=== PATIENT | female | born 1985 | race Two or more races ===

== ENCOUNTER → 2018-12-29 | Outpatient (CLI) | payer BC, MEDICAID ==
[2018-12-29 16:21] LABS: Basophils # (auto) 0 uL; Eosinophils # (auto) 0.1 uL; Neutrophils % (auto) 72.5 % (37.0-80.0)
[2018-12-29 16:24] LABS: Basophils % (auto) 0.4 % (0.0-2.0); Eosinophils % (auto) 0.9 % (0.0-7.0); Hematocrit 38.9 % (36.0-46.0); Lymphocytes # (auto) 1.2 uL; Lymphocytes % (auto) 17.1 % (10.0-50.0); Mean Corpuscular Hemoglobin 25.8 pg (28.0-32.0); Mean Corpuscular Hgb Conc. 33.4 g/dL (32.0-36.0); Monocytes # (auto) 0.6 uL; Monocytes % (auto) 9.1 % (0.0-12.0); Nucleated Red Blood Cells % 0.1 %; Platelet Count (auto) 202 10^3/uL (140-450); Red Blood Cells 5.05 10^6/uL (4.0-5.20); Red Cell Distribution Width 15.4 % (11.8-14.3); White Blood Cell 6.9 10^3/uL (4.4-10.8)
[2018-12-29 16:41] LABS: Alcohol, Urine < 3.0 mg/dL (0-5); Amphetamine Screen, Urine NEGATIVE (NEGATIVE); Barbiturate Scree,Urine NEGATIVE (NEGATIVE); Benzodiazephine Screen, Urine NEGATIVE (NEGATIVE); Cannabinoid Screen, Urine NEGATIVE (NEGATIVE); Cocaine Screen, Urine NEGATIVE (NEGATIVE); Opiate Scree,Urine NEGATIVE (NEGATIVE); Phencyclidine Screen, Urine NEGATIVE (NEGATIVE)
[2018-12-30 05:07] LABS: RPR Non Reactive (Non Reactive)
== END | disposition home or self-care (01) ==
LOC: LAB 15:41
PROVIDERS: ATTEND Specialist
DX: Z34.01 Encounter for supervision of normal first pregnancy, first trimester (principal); Z3A.13 13 weeks gestation of pregnancy; Z20.2 Contact with and (suspected) exposure to infections with a predominantly sexual mode of transmission
CPT/HCPCS: 36415; 80307; 83036; 84112; 84702; 85025; 86592; 86703; 86762; 86850; 86900; 86901; 87086; 87340

== ENCOUNTER → 2019-04-09 | Outpatient (CLI) | payer BC ==
[2019-04-09 09:40] LABS: Basophils # (auto) 0 uL; Basophils % (auto) 0.3 % (0.0-2.0); Eosinophils # (auto) 0 uL; Eosinophils % (auto) 0.5 % (0.0-7.0); Hematocrit 35.3 % (36.0-46.0); Hemoglobin 11.8 g/dL (12.2-16.2); Lymphocytes # (auto) 1.4 uL; Mean Corpuscular Hemoglobin 26.3 pg (28.0-32.0); Mean Corpuscular Hgb Conc. 33.4 g/dL (32.0-36.0); Mean Corpuscular Volume 78.7 fL (80.0-100.0); Monocytes # (auto) 0.5 uL; Monocytes % (auto) 6.6 % (0.0-12.0); Neutrophils # (auto) 6.2 uL; Neutrophils % (auto) 75.6 % (37.0-80.0); Platelet Count (auto) 180 10^3/uL (140-450); Red Blood Cells 4.48 10^6/uL (4.0-5.20); Red Cell Distribution Width 14.9 % (11.8-14.3); White Blood Cell 8.2 10^3/uL (4.4-10.8)
== END | disposition home or self-care (01) ==
LOC: LAB 08:31
PROVIDERS: ATTEND Specialist
DX: O99.810 Abnormal glucose complicating pregnancy (principal); Z3A.28 28 weeks gestation of pregnancy
CPT/HCPCS: 36415; 82951; 85025

== ENCOUNTER → 2019-06-08 | Outpatient (CLI) | payer BC ==
[2019-06-08 11:28] LABS: Basophils # (auto) 0 10 ^3/uL (0-0.2); Basophils % (auto) 0.3 % (0.0-2.0); Eosinophils # (auto) 0 10 ^3/uL (0-0.8); Eosinophils % (auto) 0.5 % (0.0-7.0); Mean Corpuscular Volume 77.9 fL (80.0-100.0); Neutrophils # (auto) 5.1 10 ^3/uL (1.6-8.6)
[2019-06-08 11:29] LABS: Hematocrit 38.3 % (36.0-46.0); Hemoglobin 12.8 g/dL (12.2-16.2); Lymphocytes # (auto) 1.3 10 ^3/uL (0.4-5.4); Lymphocytes % (auto) 18.5 % (10.0-50.0); Mean Corpuscular Hgb Conc. 33.4 g/dL (32.0-36.0); Monocytes # (auto) 0.5 10 ^3/uL (0-1.3); Monocytes % (auto) 6.6 % (0.0-12.0); Neutrophils % (auto) 74.1 % (37.0-80.0); Nucleated Red Blood Cells % 0.1 %; Platelet Count (auto) 153 10^3/uL (140-450); Red Blood Cells 4.91 10^6/uL (4.0-5.20); Red Cell Distribution Width 16.8 % (11.8-14.3); White Blood Cell 6.9 10^3/uL (4.4-10.8)
[2019-06-09 05:07] LABS: RPR Non Reactive (Non Reactive)
== END | disposition home or self-care (01) ==
LOC: LAB 10:51
PROVIDERS: ATTEND Specialist
DX: Z11.3 Encounter for screening for infections with a predominantly sexual mode of transmission (principal); N76.0 Acute vaginitis
CPT/HCPCS: 36415; 84112; 85025; 86592; 87081

== ENCOUNTER 2019-06-27 11:20 | Observation (INO) | payer BC ==
[~2019-06-27] VITALS: Ht 165.1 cm; Wt 93.0 kg
== END 2019-06-27 13:12 | disposition home or self-care (01) | DRG 951 ==
LOC: LDRP 11:20 → UNDODISOB 13:12
PROVIDERS: ADMIT Specialist; ATTEND Specialist
DX: Z34.90 Encounter for supervision of normal pregnancy, unspecified, unspecified trimester (principal)
CPT/HCPCS: 59025; 76818; 81002; G0378

== ENCOUNTER 2019-06-29 11:16 | Observation (INO) | payer BC ==
[2019-06-29] MEDS ORDERED: PREN-96 PO (12:41)
== END 2019-06-29 13:40 | disposition home or self-care (01) | DRG 833 ==
LOC: LDRP 11:16
PROVIDERS: ADMIT Obstetrics & Gynecology; ATTEND Obstetrics & Gynecology
DX: O48.0 Post-term pregnancy (principal); Z37.0 Single live birth
CPT/HCPCS: 76818; G0378; 81002

== ENCOUNTER 2019-07-01 11:40 | Observation (INO) | payer BC ==
[~2019-07-01] VITALS: Ht 165.1 cm; Wt 98.9 kg
[~2019-07-01 11:40] MED LIST: PREN-96 PO
== END 2019-07-01 13:02 | disposition home or self-care (01) | DRG 833 ==
LOC: LDRP 11:40
PROVIDERS: ADMIT Specialist; ATTEND Specialist
DX: O48.0 Post-term pregnancy (principal); Z3A.40 40 weeks gestation of pregnancy
CPT/HCPCS: 76818; 81002; G0378

== ENCOUNTER 2019-07-02 23:20 | Inpatient (IN) | payer BC ==
[~2019-07-02] VITALS: Ht 165.1 cm; Wt 98.9 kg
[2019-07-03] MEDS ORDERED: LACT. RINGERS/OXYTOCIN 20UNITS 1,000 ML IV SCH ×2 (01:02→11:26)
[2019-07-03] MEDS ORDERED: PHISODERM TOP SOLN 240ML BTL TOP PRN (01:15)
[2019-07-03] MEDS ORDERED: METHYLERGONOVINE MALEATE 0.2 MG/ML AMP IM PRN (01:15)
[2019-07-03] MEDS ORDERED: LIDOCAINE 2%HCL (LOCAL ANESTH.) INJ 20ML MDV ID ONE (01:15)
[2019-07-03] MEDS ORDERED: WITCH HAZEL-GLYCERIN PAD TOP PRN (01:15)
[2019-07-03] MEDS ORDERED: DERMOPLAST 60ML BOTTLE TOP PRN (01:15)
[2019-07-03] MEDS ORDERED: CARBOPROST TROMETHAMINE 250 MCG/1ML VIAL IM PRN (01:15)
[2019-07-03 01:41] LABS: Basophils # (auto) 0 10 ^3/uL (0-0.2); Eosinophils # (auto) 0.1 10 ^3/uL (0-0.8); Hematocrit 39.1 % (36.0-46.0); Mean Corpuscular Hemoglobin 26.1 pg (28.0-32.0); Mean Corpuscular Volume 78.3 fL (80.0-100.0); Monocytes # (auto) 0.6 10 ^3/uL (0-1.3); Red Blood Cells 4.99 10^6/uL (4.0-5.20); White Blood Cell 9.9 10^3/uL (4.4-10.8)
[2019-07-03 01:43] LABS: Basophils % (auto) 0.4 % (0.0-2.0); Eosinophils % (auto) 0.6 % (0.0-7.0); Hemoglobin 13.1 g/dL (12.2-16.2); Lymphocytes # (auto) 1.8 10 ^3/uL (0.4-5.4); Lymphocytes % (auto) 18.4 % (10.0-50.0); Mean Corpuscular Hgb Conc. 33.4 g/dL (32.0-36.0); Monocytes % (auto) 6.1 % (0.0-12.0); Neutrophils # (auto) 7.4 10 ^3/uL (1.6-8.6); Neutrophils % (auto) 74.5 % (37.0-80.0); Platelet Count (auto) 161 10^3/uL (140-450); Red Cell Distribution Width 18.3 % (11.8-14.3)
[2019-07-03 01:55] LABS: INR 0.91 (0.9-1.15); Partial Thromboplastin Time 25.4 sec (23.64-32.05)
[2019-07-03 01:58] LABS: Albumin 2.6 g/dL (3.4-5.0); BUN/Creatinine Ratio 14.1; Calcium 7.9 mg/dL (8.5-10.1); Potassium 3.7 mmol/L (3.5-5.1)
[2019-07-03 02:06] LABS: Bilirubin, Total 0.2 mg/dL (0.2-1.0); Total Protein 6.6 g/dL (6.4-8.2)
[2019-07-03] MEDS: LACTATED RINGER'S 1,000 ML IV SCH ×2 (04:19→09:00)
[2019-07-03] MEDS ORDERED: ALUM & MAG HYDROX-SIMETH LIQ(MAALOX) 30 ML PO ONE (05:15)
[2019-07-03] MEDS ORDERED: BUTORPHANOL TARTRATE 2 MG/1 ML VIAL IV ONE (07:15)
[2019-07-03] MEDS ORDERED: LACT. RINGERS/OXYTOCIN 20UNITS 500 ML IV ONE (10:26)
[2019-07-03] MEDS: IBUPROFEN 600 MG TAB PO PRN (11:02)
[2019-07-03 22:54] VITALS: BP 100/50
[2019-07-04] MEDS: IBUPROFEN 600 MG TAB PO PRN (00:02)
[2019-07-04 03:30] VITALS: BP 105/62
[2019-07-04 04:06] LABS: RPR Non Reactive (Non Reactive)
[2019-07-04] MEDS ORDERED: ACETAMINOPHEN 325 MG TAB PO PRN (09:15)
[2019-07-04] MEDS ORDERED: TETANUS-DIPTH-ACEL PERTUSSIS 0.5ML SYR Tdap IM ONE (13:15)
== END 2019-07-04 14:25 | disposition home or self-care (01) | DRG 807 ==
LOC: LDRP 23:20 → OBSVTOIN 23:20 → LDRP 07-03 01:10
PROVIDERS: ADMIT Specialist; ATTEND Specialist
PROC: 10E0XZZ Delivery of Products of Conception, External Approach (ICD-10-PCS; principal; 2019-07-03)
PROC: 10907ZC Drainage of Amniotic Fluid, Therapeutic from Products of Conception, Via Natural or Artificial Opening (ICD-10-PCS; 2019-07-03)
PROC: 3E0234Z Introduction of Serum, Toxoid and Vaccine into Muscle, Percutaneous Approach (ICD-10-PCS; 2019-07-04)
DX: O76 Abnormality in fetal heart rate and rhythm complicating labor and delivery (principal); Z37.0 Single live birth; Z3A.40 40 weeks gestation of pregnancy; O77.0 Labor and delivery complicated by meconium in amniotic fluid; Z23 Encounter for immunization
CPT/HCPCS: 36415; 59025; 59409; 76815; 80053; 84112; 85025; 85610; 85730; 86592; 86850; 86900; 86901; 87340; 90715; 94762; 96361; 96366; 96372; G0378; J2590

== ENCOUNTER → 2020-02-08 | Outpatient (CLI) | payer BC | END | disposition home or self-care (01) | LOC: LAB 10:30 | PROVIDERS: ATTEND Nurse Practitioner Family | DX: U07.1 COVID-19 (principal) | CPT/HCPCS: C9803; U0003 ==

== ENCOUNTER 2022-07-18 18:28 | Emergency (ER) | payer BC ==
[~2022-07-18] VITALS: Ht 165.1 cm; Wt 86.3 kg
[2022-07-18 19:30] VITALS: BP 132/69
[2022-07-18 19:56] LABS: Urine Bacteria FEW /hpf (None Seen); Urine Blood 3+ /uL (Negative); Urine Specific Gravity 1.004 (1.001-1.035); Urine WBC 4 /hpf (0 - 5)
[2022-07-18 21:09] LABS: Basophils # (auto) 0 10 ^3/uL (0-0.2); Basophils % (auto) 0.3 % (0.0-2.0); Eosinophils # (auto) 0 10 ^3/uL (0-0.8); Hematocrit 34.1 % (36.0-46.0); Lymphocytes # (auto) 1.6 10 ^3/uL (0.4-5.4); Monocytes # (auto) 0.4 10 ^3/uL (0-1.3); Monocytes % (auto) 5.8 % (0.0-12.0); White Blood Cell 7.1 10^3/uL (4.4-10.8)
[2022-07-18 21:11] LABS: Eosinophils % (auto) 0.3 % (0.0-7.0); Hemoglobin 10.8 g/dL (12.2-16.2); Lymphocytes % (auto) 22.8 % (10.0-50.0); Mean Corpuscular Hemoglobin 21.1 pg (28.0-32.0); Mean Corpuscular Hgb Conc. 31.8 g/dL (32.0-36.0); Mean Corpuscular Volume 66.2 fL (80.0-100.0); Neutrophils % (auto) 70.8 % (37.0-80.0); Nucleated Red Blood Cells % 0.1 %; Red Blood Cells 5.14 10^6/uL (4.0-5.20); Red Cell Distribution Width 16.2 % (11.8-14.3)
[2022-07-18 21:14] LABS: Albumin 3.4 g/dL (3.4-5.0); Calcium 8.3 mg/dL (8.5-10.1); Potassium 3.3 mmol/L (3.5-5.1)
[2022-07-18 21:18] LABS: BUN/Creatinine Ratio 14.3 (10.0-20.0); Bilirubin, Total 0.3 mg/dL (0.2-1.0); Total Protein 7.1 g/dL (6.4-8.2)
== END 2022-07-19 08:29 | disposition left against medical advice (07) ==
LOC: ER 18:28
DX: O46.8X1 Other antepartum hemorrhage, first trimester (principal); O26.891 Other specified pregnancy related conditions, first trimester; R10.2 Pelvic and perineal pain; Z3A.11 11 weeks gestation of pregnancy; Z53.21 Procedure and treatment not carried out due to patient leaving prior to being seen by health care provider
CPT/HCPCS: 36415; 76801; 76817; 80053; 81001; 84702; 85025; 86850; 86900; 86901

== ENCOUNTER 2022-11-23 15:09 | Observation (INO) | payer BC ==
[2022-11-23] MEDS ORDERED: NITR-87 PO (16:25)
== END 2022-11-23 16:38 | disposition home or self-care (01) ==
LOC: LDRP 15:09 → UNDOADMOB 15:09 → LDRP 16:21
PROVIDERS: ADMIT Obstetrics & Gynecology; ATTEND Obstetrics & Gynecology
DX: O26.893 Other specified pregnancy related conditions, third trimester (principal); R10.9 Unspecified abdominal pain; O62.9 Abnormality of forces of labor, unspecified; Z3A.30 30 weeks gestation of pregnancy
CPT/HCPCS: 59025; 81002; 94760; G0378

== ENCOUNTER → 2022-11-29 | Outpatient (CLI) | payer BC ==
[~2022-11-29] MED LIST changes: +NITR-87 PO
[2022-11-29 08:33] LABS: Basophils # (auto) 0 10 ^3/uL (0-0.2); Basophils % (auto) 0.5 % (0.0-2.0); Eosinophils # (auto) 0.1 10 ^3/uL (0-0.8); Mean Corpuscular Hemoglobin 20.8 pg (28.0-32.0); Mean Corpuscular Volume 65.6 fL (80.0-100.0); Monocytes # (auto) 0.5 10 ^3/uL (0-1.3); Neutrophils % (auto) 74.4 % (37.0-80.0)
[2022-11-29 08:34] LABS: Hematocrit 31.5 % (36.0-46.0); Lymphocytes # (auto) 1.3 10 ^3/uL (0.4-5.4); Lymphocytes % (auto) 17.4 % (10.0-50.0); Mean Corpuscular Hgb Conc. 31.6 g/dL (32.0-36.0); Monocytes % (auto) 6.7 % (0.0-12.0); Neutrophils # (auto) 5.6 10 ^3/uL (1.6-8.6); Red Blood Cells 4.81 10^6/uL (4.0-5.20); Red Cell Distribution Width 17.8 % (11.8-14.3); White Blood Cell 7.5 10^3/uL (4.4-10.8)
[2022-11-29 09:14] LABS: Hypochromia Slight; Platelet Estimate Adequate
[2022-11-30 08:07] LABS: RPR Non Reactive (Non Reactive)
[2022-12-01 09:07] LABS: Chlamydia Trachomatis, NAA Negative (Negative); Neisseria gonorrhoeae, NAA Negative (Negative)
== END | disposition home or self-care (01) ==
LOC: LAB 08:05
PROVIDERS: ATTEND Obstetrics & Gynecology
DX: O09.90 Supervision of high risk pregnancy, unspecified, unspecified trimester (principal); Z3A.00 Weeks of gestation of pregnancy not specified
CPT/HCPCS: 36415; 82951; 83036; 85025; 86592

== ENCOUNTER 2023-01-11 09:19 | Observation (INO) | payer BC | END 2023-01-11 11:13 | disposition home or self-care (01) | LOC: UNDOADMOB 09:19 → LDRP 09:19 → UNDODISOB 11:13 | PROVIDERS: ADMIT Obstetrics & Gynecology; ATTEND Obstetrics & Gynecology | DX: O24.419 Gestational diabetes mellitus in pregnancy, unspecified control (principal); Z3A.37 37 weeks gestation of pregnancy | CPT/HCPCS: 59025; 76818; 81002; 82948; 82962; G0378 ==

== ENCOUNTER 2023-01-14 20:18 | Inpatient (IN) | payer BC ==
[~2023-01-14] VITALS: Ht 30.5 cm; Wt 0.5 kg
[2023-01-14] MEDS ORDERED: LACTATED RINGER'S 1,000 ML IV ONE (22:00)
[2023-01-14] MEDS: LACTATED RINGER'S 1,000 ML IV SCH (22:44)
[2023-01-15] VITALS (21 sets, daily range): BP systolic 98–137; BP diastolic 53–78; PULSE 46–87; RESP 14–18; TEMP 97.6–98.2; O2SAT 96–100
[2023-01-15] MEDS ORDERED: TERBUTALINE SULFATE 1 MG/ML 1ML VIAL SC PRN
[2023-01-15] MEDS ORDERED: PHISODERM TOP SOLN 240ML BTL TOP PRN (01:00)
[2023-01-15] MEDS ORDERED: WITCH HAZEL-GLYCERIN PAD TOP PRN (01:00)
[2023-01-15] MEDS ORDERED: DERMOPLAST 60ML BOTTLE TOP PRN (01:00)
[2023-01-15] MEDS: LACTATED RINGER'S 1,000 ML IV SCH (01:15)
[2023-01-15] MEDS ORDERED: ceFAZolin 1GM/50ML 50 ML IV ONE (01:30)
[2023-01-15] MEDS ORDERED: LACTATED RINGER'S 1,000 ML IV ONE (01:30)
[2023-01-15] MEDS ORDERED: ceFAZolin 2 GM/D5W100ml 100 ML IV ONE ×2 (01:45)
[2023-01-15 01:47] LABS: Urine Amorphous Crystal FEW /hpf (None Seen); Urine Bacteria FEW /hpf (None Seen); Urine Blood 3+ /uL (Negative); Urine Clarity Clear (Clear); Urine Color Colorless (Yellow); Urine Protein, UAD Negative (Negative); Urine Specific Gravity 1.006 (1.001-1.035); Urine Urobilinogen Normal (Negative); Urine WBC 14 /hpf (0 - 5); Urine pH 5.5 (5.0-8.0)
[2023-01-15] MEDS ORDERED: TETRACAINE 1% INJ 2 ML VIAL IJ ONE (01:47)
[2023-01-15 01:48] LABS: Basophils # (auto) 0 10 ^3/uL (0-0.2); Hemoglobin 9.5 g/dL (12.2-16.2); Lymphocytes # (auto) 1.5 10 ^3/uL (0.4-5.4)
[2023-01-15] MEDS ORDERED: SUCCINYLCHOLINE CHLORIDE 20 MG/ML 10ML VIAL IV ONE (01:48)
[2023-01-15 01:49] LABS: Basophils % (auto) 0.5 % (0.0-2.0); Eosinophils # (auto) 0.1 10 ^3/uL (0-0.8); Eosinophils % (auto) 0.8 % (0.0-7.0); Lymphocytes % (auto) 20.1 % (10.0-50.0); Mean Corpuscular Hemoglobin 21.3 pg (28.0-32.0); Mean Corpuscular Hgb Conc. 30.7 g/dL (32.0-36.0); Mean Corpuscular Volume 69.5 fL (80.0-100.0); Monocytes # (auto) 0.5 10 ^3/uL (0-1.3); Monocytes % (auto) 6.3 % (0.0-12.0); Neutrophils # (auto) 5.3 10 ^3/uL (1.6-8.6); Neutrophils % (auto) 72.3 % (37.0-80.0); Red Blood Cells 4.47 10^6/uL (4.0-5.20); White Blood Cell 7.3 10^3/uL (4.4-10.8)
[2023-01-15] MEDS ORDERED: ceFAZolin 1GM/50ML 100 ML IV ONE (01:51)
[2023-01-15] MEDS ORDERED: PHENYLEPHRINE HCL 10 MG/ML VL ONE (01:51)
[2023-01-15] MEDS ORDERED: ONDANSETRON HCL 4 MG/2 ML VIAL ONE (01:51)
[2023-01-15] MEDS ORDERED: oxyTOCIN 10 UNIT/ML 10ML VIAL ONE (01:51)
[2023-01-15] MEDS ORDERED: MORPHINE SULF PF 5 MG/10 ML VIAL ONE (01:51)
[2023-01-15] MEDS ORDERED: fentaNYL CITRATE 100 MCG/2 ML VL ONE (01:51)
[2023-01-15] MEDS ORDERED: GLYCOPYRROLATE 0.2 MG/ML 1ML VIAL ONE (01:51)
[2023-01-15] MEDS ORDERED: ePHEDrine SULFATE 50 MG/ML AMP ONE (01:51)
[2023-01-15 01:55] LABS: INR 0.91 (0.9-1.15); Partial Thromboplastin Time 24.4 SEC (24.5-34.5); Prothrombin Time 9.6 sec (9.3-11.8)
[2023-01-15 01:57] LABS: Amphetamine Screen, Urine Neg (NEGATIVE); Barbiturate Scree,Urine Neg (NEGATIVE); Benzodiazephine Screen, Urine Neg (NEGATIVE); Cannabinoid Screen, Urine Neg (NEGATIVE); Cocaine Screen, Urine Neg (NEGATIVE); Opiate Scree,Urine Neg (NEGATIVE); Phencyclidine Screen, Urine Neg (NEGATIVE)
[2023-01-15 02:01] LABS: Alanine Aminotransferase 12 U/L (7-40); Albumin 3.3 g/dL (3.2-4.8); Alkaline Phosphatase 177 U/L (46-116); Anion Gap 6 (5-15); Aspartate Aminotransferase 27 U/L (13-40); BUN/Creatinine Ratio 9.5 (10.0-20.0); Bilirubin, Total 0.3 mg/dL (0.2-1.0); Blood Urea Nitrogen 6 mg/dL (9-23); Calcium 8.2 mg/dL (8.7-10.4); Carbon Dioxide 23 mmol/L (20-30); Chloride 106 mmol/L (98-107); Glucose 82 mg/dL (74-106); Potassium 3.7 mmol/L (3.5-5.1); Sodium 135 mmol/L (136-145); Total Protein 6.7 g/dL (5.7-8.2)
[2023-01-15 02:07] LABS: Red Cell Distribution Width 20.2 % (11.8-14.3)
[2023-01-15] MEDS ORDERED: MIDAZOLAM HCL 2MG/2ML 2ml VIAL (1mg/ml) ONE (02:30)
[2023-01-15] MEDS ORDERED: LIDOCAINE 1% HCL (LOCAL ANESTH.) INJ 20ML MDV ONE (02:31)
[2023-01-15] MEDS ORDERED: ONDANSETRON HCL 4 MG/2 ML VIAL IV PRN ×3 (03:45→04:30)
[2023-01-15] MEDS ORDERED: LACT. RINGERS/OXYTOCIN 20UNITS 1,000 ML IV SCH ×2 (03:45)
[2023-01-15] MEDS ORDERED: KETOROLAC TROMETH 30 MG/ML 1ML VIAL IV PRN (04:30)
[2023-01-15] MEDS ORDERED: DexAMETHasone SOD PHOS 10MG/1ML VIAL INJ IV PRN (04:30)
[2023-01-15] MEDS ORDERED: ACCU-CHEK COMFORT CURVE STRIP VI ONE (04:30)
[2023-01-15] MEDS ORDERED: NALOXONE HCL 0.4 MG/ML VIAL IV PRN (04:30)
[2023-01-15] MEDS ORDERED: diphenhdrAMINE HCL 50 MG/1 ML VL IV PRN (04:30)
[2023-01-15] MEDS ORDERED: ACCU-CHEK COMFORT CURVE STRIP VI SCH (06:00)
[2023-01-15] MEDS: ACETAMINOPHEN IV 1000 MG/100ML (10MG/ML) IV PRN ×2 (09:28→17:31)
[2023-01-15] MEDS: ceFAZolin 1GM/50ML 50 ML IV SCH ×2 (09:56→17:48)
[2023-01-15] MEDS ORDERED: LACTATED RINGER'S 1,000 ML IV SCH (14:00)
[2023-01-15 23:29] LABS: Basophils # (auto) 0 10 ^3/uL (0-0.2); Basophils % (auto) 0.1 % (0.0-2.0); Eosinophils # (auto) 0 10 ^3/uL (0-0.8); Hematocrit 28.9 % (36.0-46.0); Hemoglobin 8.8 g/dL (12.2-16.2); Lymphocytes # (auto) 1.3 10 ^3/uL (0.4-5.4); Lymphocytes % (auto) 11.3 % (10.0-50.0); Mean Corpuscular Hemoglobin 21.1 pg (28.0-32.0); Mean Corpuscular Hgb Conc. 30.5 g/dL (32.0-36.0); Mean Corpuscular Volume 69.3 fL (80.0-100.0); Monocytes # (auto) 0.6 10 ^3/uL (0-1.3); Monocytes % (auto) 4.9 % (0.0-12.0); Neutrophils # (auto) 9.8 10 ^3/uL (1.6-8.6); Neutrophils % (auto) 83.7 % (37.0-80.0); Nucleated Red Blood Cells % 0.1 %; Red Blood Cells 4.18 10^6/uL (4.0-5.20); Red Cell Distribution Width 20.5 % (11.8-14.3); White Blood Cell 11.7 10^3/uL (4.4-10.8)
[2023-01-16] VITALS: BP 124/61; PULSE 56; RESP 16; O2SAT 96
[2023-01-16 01:00] VITALS: BP 119/58; PULSE 60; RESP 16; O2SAT 96
[2023-01-16] MEDS: ACETAMINOPHEN IV 1000 MG/100ML (10MG/ML) IV PRN (01:37)
[2023-01-16 02:00] VITALS: BP 107/58; PULSE 55; RESP 16; O2SAT 96
[2023-01-16] MEDS: ceFAZolin 1GM/50ML 50 ML IV SCH (02:08)
[2023-01-16 03:00] VITALS: BP 101/60; PULSE 57; RESP 16; TEMP 97.9; O2SAT 96
[2023-01-16 06:46] LABS: Basophils # (auto) 0 10 ^3/uL (0-0.2); Eosinophils # (auto) 0 10 ^3/uL (0-0.8); Hemoglobin 7.9 g/dL (12.2-16.2); Lymphocytes # (auto) 1.9 10 ^3/uL (0.4-5.4); Monocytes # (auto) 0.6 10 ^3/uL (0-1.3)
[2023-01-16 06:48] LABS: Basophils % (auto) 0.3 % (0.0-2.0); Eosinophils % (auto) 0.2 % (0.0-7.0); Hematocrit 25.6 % (36.0-46.0); Lymphocytes % (auto) 20.9 % (10.0-50.0); Mean Corpuscular Hemoglobin 21.3 pg (28.0-32.0); Mean Corpuscular Hgb Conc. 30.8 g/dL (32.0-36.0); Mean Corpuscular Volume 69.1 fL (80.0-100.0); Monocytes % (auto) 6.5 % (0.0-12.0); Neutrophils # (auto) 6.5 10 ^3/uL (1.6-8.6); Neutrophils % (auto) 72.1 % (37.0-80.0); Nucleated Red Blood Cells % 0.2 %; Red Blood Cells 3.71 10^6/uL (4.0-5.20); Red Cell Distribution Width 19.5 % (11.8-14.3)
[2023-01-16 07:30] VITALS: BP 108/55; PULSE 60; RESP 18; TEMP 98.4; O2SAT 97
[2023-01-16 08:05] LABS: Platelet Estimate Adequate
[2023-01-16 08:06] LABS: Ovalocytes MODERATE; Stomatocytes Few
[2023-01-16 08:06] LABS: RPR Non Reactive (Non Reactive)
[2023-01-16 08:07] LABS: Anisocytosis Slight; Hypochromia Moderate
[2023-01-16 09:06] LABS: Free Thyroxine Index 1.7 (1.2-4.9); Thyroxine (T4) 10.8 ug/dL (4.5-12.0)
[2023-01-16] MEDS ORDERED: BISACODYL 10 MG RECT SUPP PR PRN (09:15)
[2023-01-16] MEDS ORDERED: HYDROcodone-ACET 5/325MG TAB PO PRN (09:15)
[2023-01-16] MEDS ORDERED: IBUPROFEN 800 MG TAB PO PRN (09:15)
[2023-01-16] MEDS: HYDROcodone-ACET 5/325MG TAB PO PRN ×2 (09:42→15:22)
[2023-01-16] MEDS ORDERED: DOCUSATE SOD 100 MG CAP PO SCH (10:00)
[2023-01-16] MEDS ORDERED: DOCUSATE CALCIUM 240 MG CAP PO SCH (10:00)
[2023-01-16] MEDS ORDERED: FERROUS SULFATE 325mg EC TAB PO SCH (10:00)
[2023-01-16 11:00] VITALS: BP 114/54; PULSE 60; RESP 18; TEMP 98.4; O2SAT 97
[2023-01-16] MEDS ORDERED: DOCU-265 PO (13:00)
[2023-01-16] MEDS ORDERED: IBUP-1455 PO (13:00)
[2023-01-16] MEDS ORDERED: HYDR-4902 PO (13:00)
[2023-01-16] MEDS ORDERED: FER325T PO (13:00)
== END 2023-01-16 15:58 | disposition home or self-care (01) | DRG 787 ==
LOC: LDRP 20:18 → OBSVTOIN 23:39
PROVIDERS: ADMIT Obstetrics & Gynecology; ATTEND Obstetrics & Gynecology
PROC: 0UB00ZZ Excision of Right Ovary, Open Approach (ICD-10-PCS; 2023-01-15)
PROC: 10D00Z1 Extraction of Products of Conception, Low, Open Approach (ICD-10-PCS; principal; 2023-01-15 02:09)
DX: O76 Abnormality in fetal heart rate and rhythm complicating labor and delivery (principal); D62 Acute posthemorrhagic anemia; O24.420 Gestational diabetes mellitus in childbirth, diet controlled; O99.892 Other specified diseases and conditions complicating childbirth; O34.83 Maternal care for other abnormalities of pelvic organs, third trimester; O34.13 Maternal care for benign tumor of corpus uteri, third trimester; O77.0 Labor and delivery complicated by meconium in amniotic fluid; O99.824 Streptococcus B carrier state complicating childbirth; N83.201 Unspecified ovarian cyst, right side; D25.2 Subserosal leiomyoma of uterus; O90.81 Anemia of the puerperium; R00.1 Bradycardia, unspecified; Z3A.37 37 weeks gestation of pregnancy; Z37.0 Single live birth; Z90.721 Acquired absence of ovaries, unilateral
CPT/HCPCS: 36415; 59025; 76805; 76818; 80053; 80307; 81001; 81002; 82948; 82962; 84443; 85025; 85610; 85730; 86592; 86850; 86900; 86901; 93005; 94760; 94762; 96360; 96361; 96365; 96366; G0378; J0131; J0330; J0690; J2001; J2250; J2405; J2590